=== PATIENT | female | born 1985 | race Two or more races ===

== ENCOUNTER 2017-10-30 17:34 | Emergency (ER) | payer MEDICAID ==
[~2017-10-30] VITALS: Ht 160 cm; Wt 86.2 kg
[2017-10-30 17:38] VITALS: BP 124/88
== END 2017-10-30 18:09 | disposition left against medical advice (07) ==
LOC: ER 17:34 → EDBD 17:34 → ER 18:09
DX: R55 Syncope and collapse (principal); Z53.21 Procedure and treatment not carried out due to patient leaving prior to being seen by health care provider